=== PATIENT | female | born 1945 | race Caucasian/White ===

== ENCOUNTER 2017-09-20 09:25 | Emergency (ER) | payer OTHER, MEDICARE ==
[~2017-09-20] VITALS: Ht 160 cm; Wt 83.9 kg
[~2017-09-20 09:25] MED LIST: ASPIRIN CHILDRE81 MG PO; CIPRO 500MG TA500 MG PO; COUMADIN5 M2 PO; COZAAR 50MG TAB50 MG PO; DIAZEPAM5 MG PO; DIOVAN80 MG PO; FLAGYL 25O MG250 M1 PO; LOSARTAN POTASS50 MG PO; MIRAPEX ER0.375 MG PO; MIRAPEX0.125 MG PO; NORVASC 5MG TAB5 MG PO; PERCOCET 5-3251 EACH PO; PRAMIPEXOLE D0.25 MG PO; PROPRANOLOL HCL80 M1 PO
--- NOTE | 2017-09-20 10:48 | RADIOLOGY REPORT ---
EXAMINATION: XR KNEE, RIGHT CLINICAL INFORMATION: Pain and swelling status post hearing a pop. Rule out fracture. History of knee replacement in 2016. COMPARISON: None TECHNIQUE: Right knee films dated 10/02/2015. of the right knee. FINDINGS: The patient is status post total right knee arthroplasty. The hardware is intact. There is a trace amount of lucency seen in between the distal femoral hardware and the anterior femoral cortex. This may be related to bone resorption related to subtle foreign body reaction. No hardware failure or [place] bone fracture is seen. Diffuse osteopenia is noted. No significant knee joint effusion is seen. Small well-corticated bone fragments are seen along the medial joint line and lateral joint line, consistent with heterotopic ossifications. IMPRESSION: 1. No evidence of hardware failure or [place] bone fracture. 2. Subtle lucency in between the anterior distal femoral component and the anterior femoral condyle.
--- NOTE | 2017-09-20 10:49 | ED UPPER/LOWER EXTREMITY COMPL ---
History of Present Illness General Chief Complaint: Lower Extremity Problems Stated Complaint: RIGHT LEG PAIN Source: patient Exam Limitations: no limitations Vital Signs & Intake/Output Vital Signs & Intake/Output Vital Signs Date Time Temp Pulse Resp B/P B/P Pulse O2 O2 Flow FiO2 Mean Ox Delivery Rate 09/20 1126 97.4 70 15 164/76 99 Room Air Room Air 09/20 0929 97.7 75 16 187/82 97 Room Air Allergies Coded Allergies: codeine (UNKNOWN 09/28/15) morphine (Intermediate, HALLUCINATIONS 09/28/15) Reconcile Medications Aspirin (Children's Aspirin) 81 MG TAB.CHEW 1 TAB PO DAILY HEART HEALTH ( Reported) Diazepam 5 MG TAB 1 TAB PO TID PRN DIRECTED (Reported) Oxycodone HCl/Acetaminophen (Percocet 5-325 MG Tablet) 1 EACH TABLET 1-2 TAB PO Q4P PRN pain PRAMIPEXOLE DI-HCL (Mirapex ER) 0.[address] 1 TAB PO DAILY Orthostatic Tremors (Reported) PROPRANOLOL HCL (Propranolol HCl) 80 MG TAB 1 TAB PO BID DIRECTED ( Reported) Warfarin Sodium (Coumadin) 5 MG TABLET 1 TAB PO DAILY anticoagulation Triage Note: 72 YESTERDAY. STATES "I STOOD AND HEARD A POP AND HAVE HAD EXCRUCIATING PAIN SINCE. PT DENIES FALL. DENIES TRAUMA. STATES SHE WAS UNABLE TO BEAR WEIGHT LAST NIGHT; A LITTLE IMPROVED TODAY. REPORTS SWELLING, ALSO IMPROVED TODAY. HX KNEE REPLACEMENT 2016 DECLINES MEDS IN TRIAGE - TOOK ALEVE X 2 WITH LITTLE EFFECT. IN W/C FOR COMFORT Triage Nurses Notes Reviewed? yes Onset: Abrupt Duration: day(s): Timing: recent history Severity: moderate, severe Pain/Injury Location: Right: Knee. Method of Injury: unknown No Modifying Factors: none HPI: 72-year-old female comes into the emergency room for further evaluation of right knee pain and swelling. Patient reports that she was at a shower yesterday and when she twisted to turn she felt a pop in her knee. She has a previous history of knee replacement. Significant pain yesterday. Unable to walk. Slightly improved today. Comes in for further evaluation. (Sean LEI,Farooq) Past History Travel History Traveled to [place] past 21 day No Medical History Any Pertinent Medical History? 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 No (Farooq Meadows) Review of Systems Review of Systems Constitutional: Reports: no symptoms. EENTM: Reports: no symptoms. Respiratory: Reports: no symptoms. Cardiovascular: Reports: no symptoms. Gastrointestinal/Abdominal: Reports: no symptoms. Genitourinary: Reports: no symptoms. Musculoskeletal: Reports: see HPI. Skin: Reports: no symptoms. Neurological/Psychological: Reports: no symptoms. Hematologic/Endocrine: Reports: no symptoms. Immunological: Reports: no symptoms. All Other Systems: Reviewed and Negative (Farooq Meadows) Physical Exam Physical Exam General Appearance: well developed/nourished, mild distress Head: atraumatic Eyes: Bilateral: normal appearance. Ears, Nose, Throat: normal ENT inspection, hearing grossly normal Neck: normal inspection Cardiovascular/Respiratory: no respiratory distress Back: normal inspection Hip Right: normal range of motion Knee Right: soft tissue tenderness, limited range of motion, pain over mcl, Foot Right: normal inspection, normal range of motion Skin: intact, normal color, warm/dry (Farooq Meadows) Progress Differential Diagnosis: contusion, dislocation, fracture, gout, septic arthritis , sprain, tendon injury Plan of Care: Orders Procedure Date/time Status Durable Medical Equipment 09/20 1112 Active Diagnostic Imaging: Viewed by Me: Radiology Read. Discussed w/RAD: Radiology Read. Radiology Impression: PATIENT: RADHA BA PRESENT AGE: 72 PATIENT ACCOUNT NO: [id number] : 43 LOCATION: [facility], [place] ORDERING PHYSICIAN: Orlando Goldberg MD SERVICE DATE: 09/20/170935 EXAM TYPE : RAD - XRY-KNEE COMPLETE RIGHT EXAMINATION: XR KNEE, RIGHT CLINICAL INFORMATION : Pain and swelling status post hearing a pop. Rule out fracture. History of knee replacement in 2016. COMPARISON: None TECHNIQUE: Right knee films dated . of the right knee. FINDINGS: The patient is status post total right knee arthroplasty. The hardware is intact. There is a trace amount of lucency seen in between the distal femoral hardware and the anterior femoral cortex. This may be related to bone resorption related to subtle foreign body reaction. No hardware failure or [place] bone fracture is seen. Diffuse osteopenia is noted. No significant knee joint effusion is seen. Small well-corticated bone fragments are seen along the medial joint line and lateral joint line, consistent with heterotopic ossifications. IMPRESSION: 1. No evidence of hardware failure or [place] bone fracture. 2. Subtle lucency in between the anterior distal femoral component and the anterior femoral condyle. DICTATED BY: Bere White MD DATE/TIME DICTATED:09/20/171039 AIRBRUSH ARTIST:LEOPOLDO DATE/TIME TRANSCRIBED:09/20/171039 CONFIDENTIAL, DO NOT COPY WITHOUT APPROPRIATE AUTHORIZATION. <Electronically signed in Other Vendor System> SIGNED BY: Bere White MD 09/20/17 1048 (Farooq Meadows) Departure Departure Disposition: HOME OR SELF CARE Condition: Stable Clinical Impression Primary Impression: Right knee sprain Referrals: Zaina ZAIDI,Jordan Saucedo (PCP/Family) Alexandra ZAIDI,Alfonzo Additional Instructions: Ice. Ibuprofen. Rest. Weightbearing as tolerated. Follow-up with orthopedic doctor. Return if any concerns worsening symptoms. Please go over all results of today's visit with your primary care doctor. Contact your primary care doctor to let them know you were here in the emergency room. There may be nonspecific findings which may not be related to your visit today here in the emergency room but may require further evaluation and chronic monitoring by your primary care doctor. If you had a laceration today the chance of foreign body always remains. You should follow-up with your primary care doctor for recheck in 3-5 days for a wound check. If you had an x-ray done there is a chance that a fracture could have been missed on initial read and you should follow-up with your primary care doctor for repeat x-rays if symptoms persist. If your blood pressure was elevated here in the emergency room please have rechecked by the [facility] primary care doctor within the next 48. If you were prescribed a narcotic here in the emergency room or any type of controlled substances you're not allowed to drive while taking this medication or operate any type of heavy machinery. Narcotics can make you feel lightheaded dizziness nausea and can cause constipation. You may need to machine operator picker a stool softener. Thank you for choosing [facility] emergency room. Please return to the emergency room immediately if you have any other concerns worsening of symptoms. Departure Forms: Customer Survey General Discharge Information Comments 09/20/2017 12:27:06 PM Patient referred back to her orthopedic doctor. She has a walker at home. Ice. Compression. Tylenol as needed for pain. (Farooq Meadows) PA/ASSOCIATE JAVA DEVELOPER Co-Sign Statement Statement: ED Attending supervision documentation- [X] I saw and evaluated the patient. I have also reviewed all the pertinent lab results and diagnostic results. I agree with the findings and the plan of care as documented in the PA's/ASSOCIATE JAVA DEVELOPER's documentation. Patient presents for evaluation of a right knee injury. Physical examination reveals mild soft tissue swelling and tenderness over the medial collateral ligament. The knee is otherwise stable on exam. [] I have reviewed the ED Record and agree with the PA's/ASSOCIATE JAVA DEVELOPER's documentation. [] Additions or exceptions (if any) to the PAs/ASSOCIATE JAVA DEVELOPER's note and plan are summarized below: [] (Ashlyn ZAIDI,Orlando Smart) Procedures Splinting Location: right knee Manual Alignment Performed: No Pre-Made Type: knee imobilizer Splint Applied By: splint applied by me Pre-Proc Neuro Vasc Exam: normal Post-Proc Neuro Vasc Exam: normal (Farooq Meadows)
[2017-09-20 11:26] VITALS: BP 164/76
== END 2017-09-20 11:27 ==
LOC: ERH 09:25
DX: S83.91XA Sprain of unspecified site of right knee, initial encounter (principal); X58.XXXA Exposure to other specified factors, initial encounter; Y93.E1 Activity, personal bathing and showering; Y92.002 Bathroom of unspecified non-institutional (private) residence as the place of occurrence of the external cause
CPT/HCPCS: 73562-RT